=== PATIENT | female | born 1995 | race Caucasian/White ===

== ENCOUNTER 2017-01-20 11:34 | Emergency (ER) | payer BC, MEDICAID ==
[2017-01-20 12:46] VITALS: BP 121/74
--- NOTE | 2017-01-20 13:51 | EDM.PDOC ---
ED HPI GENERAL MEDICAL PROBLEM - General Chief Complaint: Lower Extremity Injury/Pain Stated Complaint: SWOLLEN LT ANKLE Time Seen by Provider: 01/20/17 13:30 Source of Information: Reports: Patient History Limitations: Reports: No Limitations - History of Present Illness INITIAL COMMENTS - FREE TEXT/NARRATIVE: Zeina is a 21 year old female who presents to the ED today with c/o left ankle pain. Patient was rollerblading when she fell and twisted her ankle, pain with weight bearing. Denies any other injuries. Onset: Today Duration: Hour(s): (1) Left Ankle Pain Score (Numeric/FACES): 6 - Related Data Allergies Allergy/AdvReac Type Severity Reaction Status Date / Time No Known Allergies Allergy Verified 09/23/15 04:42 Home Meds: Home Meds NK [No Known Home Meds] 01/20/17 [History] Past Medical History Genitourinary History: Reports: Other (See Below) Other Genitourinary History: Past bladder issues r/t medications. [employer]PER[employer]OR History: Reports: Psychiatric History: Reports: ADD Social & Family History - Family History HEENT: Reports: Cataract, Impaired Vision Cardiac: Reports: Heart Murmur, Hypertension Respiratory: Reports: Asthma, COPD GI: Reports: Cholelithiasis, Hiatal Hernia OBGYN: Reports: Neurological: Reports: Vertigo Psychiatric: Reports: Bipolar Endocrine/Metabolic: Reports: Diabetes, type II Hematologic: Reports: Anemia Dermatologic: Reports: Eczema Oncologic: Reports: Breast, Hodgkin's Lymphoma - Tobacco Use Smoking Status *Q: Light Tobacco Smoker Years of Tobacco use: 1 Packs/Tins Daily: 0.5 Used Tobacco, but Quit: Yes Month Tobacco Last Used: February Second Hand Smoke Exposure: No - Caffeine Use Caffeine Use: Reports: Energy Drinks, Soda - Alcohol Use Days Per Week of Alcohol Use: 0 - Recreational Drug Use Recreational Drug Use: No Review of Systems - Review of Systems Review Of Systems: ROS reveals no pertinent complaints other than HPI. ED EXAM, GENERAL - Physical Exam Exam: See Below Exam Limited By: No Limitations General Appearance: Alert, WD/WN, No Apparent Distress Respiratory/Chest: No Respiratory Distress Cardiovascular: Regular Rate, Rhythm Back Exam: Normal Inspection Extremities: Normal Capillary Refill, Joint Swelling, Limited Range of Motion, Other (tenderness and swelling to left lateral malleolar region, capillary refill intact, pedal pulses intact, strenght 4/5 due to pain) Neurological: Alert, Oriented, CN II-XII Intact Psychiatric: Normal Affect Skin Exam: Warm, Dry, Intact Course - Vital Signs Text/Narrative:: Zeina is a 21 year old female with c/o left ankle pain after twisting ankle while rollerblading. Please refer to HPI and focused exam. Patient on exam is tender, concern for fracture, x-ray obtained, confirms distal fibula fracture, relatively non-displaced, discussed with patient, posterior short and stirrup splint applied with orthoglass, good cms post application. Patient given splint care instructions, non weight bearing crutches and teaching. Ibuprofen scheduled, Tylenol as needed. RICE encouraged. DR. Alatorre follow up next week/ ortho clinic. Return with any complications. Patient agreeable and discharged in stable condition. Last Recorded V/S: Last Vital Signs Temp 35.5 C 01/20/17 12:48 Pulse 72 01/20/17 12:48 Resp 14 01/20/17 12:48 BP 121/74 01/20/17 12:48 Pulse Ox 98 01/20/17 12:48 - Orders/Labs/Meds Orders: Active Orders 24 hr Category Date Time Status Ankle Min 3V Lt [CR] Stat Exams 01/20/17 13:00 Taken Departure - Departure Time of Disposition: 14:30 Disposition: Home, Self-Care 01 Condition: Good Clinical Impression: Fracture of fibula - Discharge Information Instructions: Cast or Splint Care, [id number], Crutch Use, [id number] Referrals: Ida Dove CNM [Primary Care Provider] - Forms: ED Department Discharge Additional Instructions: Keep elevated, rest, ice frequently. Crutches non-weight bearing Ibuprofen 600 mg every 6 hours, Tylenol as needed. Ortho clinic will call you for f/u appt next week. - My Orders Last 24 Hours: My Active Orders 01/20/17 13:00 Ankle Min 3V Lt [CR] Stat - Assessment/Plan Last 24 Hours: My Active Orders 01/20/17 13:00 Ankle Min 3V Lt [CR] Stat
--- NOTE | 2017-01-21 09:02 | CR ---
Distal fibular fracture with minimal displacement. Remainder intact.
== END 2017-01-20 14:06 | disposition home or self-care (01) ==
LOC: JP.ED 11:34
DX: S82.832A Other fracture of upper and lower end of left fibula, initial encounter for closed fracture (principal); F17.210 Nicotine dependence, cigarettes, uncomplicated; W01.0XXA Fall on same level from slipping, tripping and stumbling without subsequent striking against object, initial encounter
CPT/HCPCS: 29515; 73610-26-LT; 73610-LT; 99284-25